=== PATIENT | female | born 1940 | race Caucasian/White ===

== ENCOUNTER 2023-07-12 08:41 | Inpatient (IN) | payer MEDICARE ==
[~2023-07-12] VITALS: Ht 154.9 cm; Wt 79.9 kg
[2023-07-12 08:46] VITALS: BP_SYST 164; PULSE 60; RESP 16; TEMP 97.4; O2SAT 95
[2023-07-12 09:44] LABS: BASOPHILS % (AUTO) 0.6 % (0.0-2.0); EOSINOPHILS # (AUTO) 0.2 K/uL (0.0-0.4); EOSINOPHILS % (AUTO) 2.3 % (0.0-4.0); HEMATOCRIT 39.2 % (36-48); HEMOGLOBIN 13.2 g/dL (12.0-16.0); INR 1.2 (0.8-1.2); LYMPHOCYTES # (AUTO) 1.1 K/uL (1.0-5.5); LYMPHOCYTES % (AUTO) 16.4 % (20.5-51.5); MEAN CORPUSCULAR HEMOGLOBIN 32 pg (27-31); MEAN CORPUSCULAR HGB CONC 34 % (32-36); MEAN CORPUSCULAR VOLUME 94 fL (79.0-98.0); MONOCYTES # (AUTO) 0.4 K/uL (0.0-1.0); MONOCYTES % (AUTO) 6.8 % (1.7-9.3); NEUTROPHILS # (AUTO) 4.8 K/uL (1.8-7.7); NEUTROPHILS % (AUTO) 73.9 % (40.0-70.0); PLATELET COUNT (AUTO) 164 K/uL (130-430); PROTHROMBIN TIME 12.5 SECS (9.5-12.5); RED BLOOD CELL COUNT(AUTO) 4.18 MIL/uL (4.2-6.2); RED CELL DISTRIBUTION WIDTH 15.8 % (9.0-15.0); WHITE BLOOD COUNT (AUTO) 6.5 K/uL (4.8-10.8)
[2023-07-12 09:49] LABS: ALANINE AMINOTRANSFERASE 19 U/L (12-78); ALBUMIN 3.7 g/dL (3.4-4.8); ANION GAP 7 (5-15); ASPARTATE AMINOTRANSFERASE 17 U/L (10-37); CALCIUM 9.1 mg/dL (8.4-11.0); CARBON DIOXIDE 31 mmol/L (23-29); CHLORIDE 105 mmol/L (98-107); CREATININE 0.81 mg/dL (0.55-1.30); GLUCOSE 110 mg/dL (74-106); POTASSIUM 4.1 mmol/L (3.5-5.1); SODIUM SERUM 143 mmol/L (136-145); TOTAL BILIRUBIN 0.6 mg/dL (0.0-1.0); TOTAL PROTEIN, SERUM 8.2 g/dL (6.4-8.3); UREA NITROGEN, BLOOD 16 mg/dL (8-21)
[2023-07-12 09:52] LABS: BILIRUBIN,DIRECT 0.1 mg/dL (0.0-0.3)
[2023-07-12 10:15] LABS: BILIRUBIN,URINE NEGATIVE (NEGATIVE); BLOOD, URINE 1+ (NEGATIVE); CLARITY/URINE CLEAR (CLEAR); COLOR,URINE YELLOW (YELLOW); GLUCOSE,URINE NEGATIVE (NEGATIVE); KETONES,URINE NEGATIVE (NEGATIVE); LEUKOCYTE ESTERASE ,URINE NEGATIVE (NEGATIVE); NITRITE, URINE NEGATIVE (NEGATIVE); PROTEIN URINE NEGATIVE (NEGATIVE); UROBILINOGEN,URINE 0.2 (0.2-1.0)
[2023-07-12 10:30] LABS: BACTERIA,URINE RARE /HPF (None Seen); MUCUS,URINE 1+ /LPF (None Seen); RBC,URINE 0-3 /HPF (0-3); WBC,URINE 0-3 /HPF (0-3)
[2023-07-12] MEDS ORDERED: POTA-178 (15:15)
[2023-07-12] MEDS ORDERED: ATOR20TA64 PO (15:15)
[2023-07-12] MEDS ORDERED: FURO20TA4 PO (15:15)
[2023-07-12] MEDS ORDERED: ATEN-41 PO (15:15)
[2023-07-12] MEDS ORDERED: DABI150C PO (15:15)
[2023-07-12] MEDS ORDERED: LEVO75TA7 PO (15:15)
[2023-07-12] MEDS ORDERED: LOSA50TA28 PO (15:15)
[2023-07-12] MEDS ORDERED: AMLO10TA88 PO (15:15)
[2023-07-12 16:30] VITALS: BP_SYST 149; PULSE 58; RESP 16; TEMP 97.9; O2SAT 97
[2023-07-12 17:25] VITALS: BP_SYST 149; PULSE 58; RESP 16; TEMP 97.9
[2023-07-12 20:30] VITALS: BP_SYST 126; PULSE 59; RESP 18; TEMP 97.7; O2SAT 95
[2023-07-12] MEDS ORDERED: LORazepam 2 MG/ML VIAL IVP PRN (23:00)
[2023-07-12] MEDS ORDERED: HYDROcodone/ACETAMIN 5-325 MG TAB (NORCO/ VICODIN) PO PRN (23:00)
[2023-07-12] MEDS ORDERED: ONDANSETRON HCL 4 MG/2 ML VIAL IVP PRN (23:00)
[2023-07-12] MEDS ORDERED: HYDROcodone/ACETAMIN 10-325 MG TAB PO PRN (23:00)
[2023-07-12] MEDS ORDERED: NALOXONE HCL 0.4 MG/ML AMP (NARCAN) IVP PRN ×2 (23:00)
[2023-07-13 00:10] VITALS: BP_SYST 136; PULSE 62; RESP 17; TEMP 96.4; O2SAT 94
[2023-07-13 05:24] LABS: BASOPHILS % (AUTO) 0.5 % (0.0-2.0); EOSINOPHILS # (AUTO) 0.2 K/uL (0.0-0.4); EOSINOPHILS % (AUTO) 2.7 % (0.0-4.0); HEMATOCRIT 35.4 % (36-48); LYMPHOCYTES # (AUTO) 1.1 K/uL (1.0-5.5); LYMPHOCYTES % (AUTO) 15.8 % (20.5-51.5); MEAN CORPUSCULAR HEMOGLOBIN 32 pg (27-31); MEAN CORPUSCULAR HGB CONC 34 % (32-36); MEAN CORPUSCULAR VOLUME 94 fL (79.0-98.0); MONOCYTES # (AUTO) 0.6 K/uL (0.0-1.0); MONOCYTES % (AUTO) 8.1 % (1.7-9.3); NEUTROPHILS # (AUTO) 5.2 K/uL (1.8-7.7); NEUTROPHILS % (AUTO) 72.9 % (40.0-70.0); PLATELET COUNT (AUTO) 160 K/uL (130-430); RED BLOOD CELL COUNT(AUTO) 3.78 MIL/uL (4.2-6.2); RED CELL DISTRIBUTION WIDTH 15.5 % (9.0-15.0); WHITE BLOOD COUNT (AUTO) 7.1 K/uL (4.8-10.8)
[2023-07-13 05:32] LABS: ANION GAP 8 (5-15); CALCIUM 8.9 mg/dL (8.4-11.0); CARBON DIOXIDE 27 mmol/L (23-29); CHLORIDE 105 mmol/L (98-107); CREATININE 0.65 mg/dL (0.55-1.30); GLUCOSE 96 mg/dL (74-106); POTASSIUM 3.8 mmol/L (3.5-5.1); SODIUM SERUM 140 mmol/L (136-145); UREA NITROGEN, BLOOD 17 mg/dL (8-21)
[2023-07-13] MEDS: NORMAL SALINE 5 ML DISP.SYRIN IVF SCH (06:41)
[2023-07-13] MEDS: LEVOTHYROXINE SODIUM 0.075 MG TABLET PO SCH (06:45)
[2023-07-13 08:40] VITALS: BP_SYST 147; PULSE 59; RESP 17; TEMP 96.9; O2SAT 99
[2023-07-13] MEDS: ATENOLOL 25 MG TABLET(TENORMIN) PO SCH (10:15)
[2023-07-13] MEDS: ACETAMINOPHEN 325 MG TABLET PO PRN (10:17)
[2023-07-13] MEDS: FUROSEMIDE 20 MG TABLET PO SCH (10:17)
[2023-07-13] MEDS: amLODIPine BESYLATE 10 MG TABLET PO SCH (10:18)
[2023-07-13] MEDS: POTASSIUM CHLORIDE 10 MEQ TABLET.ER PO SCH (10:18)
[2023-07-13] MEDS: DABIGATRAN ETEXILATE MESYLATE 75 MG CAPSULE PO SCH (10:21)
[2023-07-13] MEDS: LOSARTAN POTASSIUM 50 MG TABLET (COZAAR) PO SCH (10:28)
[2023-07-13 11:17] VITALS: BP_SYST 131; PULSE 60; RESP 16; TEMP 98.2; O2SAT 96
[2023-07-13 16:18] VITALS: BP_SYST 134; PULSE 60; RESP 16; TEMP 98.4; O2SAT 96
[2023-07-13 20:32] VITALS: BP_SYST 131; PULSE 72; RESP 18; TEMP 97.3; O2SAT 94
[2023-07-13] MEDS ORDERED: ATORVASTATIN 20 MG TABLET PO SCH (21:00)
== END 2023-07-13 21:45 | disposition short-term general hospital (02) | DRG 310 ==
LOC: SED 08:41 → SMU 13:42 → UNDOADMIN 13:42 → STU 13:59
PROVIDERS: ADMIT Preventive Medicine Preventive Medicine/Occupational Environmental Medicine; ATTEND Preventive Medicine Preventive Medicine/Occupational Environmental Medicine
DX: R00.1 Bradycardia, unspecified (principal); I11.0 Hypertensive heart disease with heart failure; I50.9 Heart failure, unspecified; E03.9 Hypothyroidism, unspecified; Z79.899 Other long term (current) drug therapy; Z79.01 Long term (current) use of anticoagulants; E78.5 Hyperlipidemia, unspecified; E11.65 Type 2 diabetes mellitus with hyperglycemia
CPT/HCPCS: 36415; 71045; 80048; 80076; 81000; 81001; 81015; 83880; 84484; 85025; 85379; 85610; 85730; 93005; 93306; 93880; 97112-GP; 97116-GP; 99285; G0378